=== PATIENT | male | born 1955 | race Two or more races ===

== ENCOUNTER 2016-09-05 14:52 | Emergency (ER) | payer BC ==
[2016-09-05 15:43] VITALS: BP 136/96; PULSE 81; RESP 16; TEMP 97.9; O2SAT 96
--- NOTE | 2016-09-05 16:14 | DX ---
Left foot - 3 views dated September 05, 2016 Indication: Pain at first metatarsophalangeal joint. Findings: The normally mineralized bones are anatomically aligned. No fracture, periosteal reactio n or bone lesion. Joint spaces are well-preserved. No marginal erosions or osteophytes. Sesamoid bone s are normal. Impression: Negative. No explanation for pain.
--- NOTE | 2016-09-05 16:26 | UCPHY ---
H & P Time Seen by Provider: 09/05/16 15:53 Patient Type: Established HPI/ROS: CHIEF COMPLAINT: Left great toe injury HISTORY OF PRESENT ILLNESS: 61-year-old male presents to Urgent Care with injury to the left great toe. The patient was helping somebody move move something yesterday and the heavy box hyperextended his left great toe. He complains of pain now in his left foot especially overlying the left great toe. He is able to walk, however this does cause pain. Denies any other trauma or injury. ROS: Denies numbness or tingling in his toes, pain in the left ankle or calf. Past Medical/Surgical History: Orthopedic surgery, cholecystectomy Social History: Smoking Status: Current every day smoker Physical Exam: Tender to palpate along left great toe. Tender to palpate along the left 1st metacarpal. Nontender to palpate the rest of the left foot. No palpable bony deformity. She no rotational deformities noted. No abrasion or puncture wound. Left ankle is nontender. Left calf is nontender. Normal sensation to light touch with normal 2 point discrimination. Antalgic gait. Constitutional: Initial Vital Signs Temperature (C) 36.6 C 09/05/16 15:39 Heart Rate 81 09/05/16 15:39 Respiratory Rate 16 09/05/16 15:39 Blood Pressure 136/96 H 09/05/16 15:39 O2 Sat (%) 96 09/05/16 15:39 O2 Delivery Mode Room Air Allergies/Adverse Reactions: No Known Allergies Allergy (Verified 09/05/16 15:33) Home Medications: Medication Instructions Recorded NO HOME MEDS 07/31/13 MDM/Departure - Depart Disposition: Home, Routine, Self-Care Clinical Impression: Contusion of left foot Qualifiers: Encounter type: initial encounter Qualifier Code: (S90.32XA) Contusion of left foot, initial encounter Sprain of left foot Qualifiers: Encounter type: initial encounter Qualifier Code: (S93.602A) Unspecified sprain of left foot, initial encounter Condition: Good Instructions: Foot Contusion (ED), Foot Sprain (ED) Additional Instructions: Post op shoe for comfort and support. Ibuprofen 600mg every 8 hours for pain as directed. Stand Alone Forms: Work Limited Duty Referrals: Mitchel Vasques MD [Medical Doctor] - 2-3 days without fail (Orthopedic surgeon on-call) - PQRS PQRS Measurement: Not applicable
== END 2016-09-05 16:38 | disposition home or self-care (01) ==
LOC: CED 14:52
DX: S90.32XA Contusion of left foot, initial encounter (principal); S93.602A Unspecified sprain of left foot, initial encounter; Z72.0 Tobacco use
CPT/HCPCS: 73630-PO; 99213-PO; G0463-PO